=== PATIENT | male | born 1990 | race Caucasian/White ===

== ENCOUNTER 2019-09-22 13:50 | Emergency (ER) | payer BC ==
[~2019-09-22] VITALS: Ht 175.3 cm; Wt 104.5 kg
[2019-09-22 13:54] VITALS: Ht 175.3 cm; Wt 104.5 kg
[2019-09-22] MEDS ORDERED: CYMBALTA30 MG PO (13:55)
[2019-09-22 14:29] LABS: ANION GAP 15.8 mmol/L (8-16); CALCIUM 9.3 mg/dL (8.5-10.1); CARBON DIOXIDE 23.9 mmol/L (21.0-32.0); CREATININE - SERUM 1.5 mg/dL (0.6-1.3); POTASSIUM - SERUM 3.7 mmol/L (3.5-5.1)
[2019-09-22 14:35] LABS: ALBUMIN 4.5 g/dL (3.4-5.0); BILIRUBIN - TOTAL 0.85 mg/dL (0.2-1.3); PROTEIN - SERUM 8.4 g/dL (6.4-8.2)
[2019-09-22 14:36] LABS: GLUCOSE NEGATIVE (NEGATIVE); NITRITE NEGATIVE (NEGATIVE); SPECIFIC GRAVITY 1.005 (1.005-1.020)
[2019-09-22 14:36] LABS: BASOPHILS 0.1 % (0-2); EOSINOPHILS 0.1 % (0-7); HEMATOCRIT 47.8 % (42.0-54.0); HEMOGLOBIN 15.9 g/dL (13.5-17.5); IMMATURE GRANULOCYTES 0.3 % (0-5); LYMPHOCYTES 10.9 % (15-50); MCH 32.4 pg (26.0-34.0); MCHC 33.3 g/dL (31.0-37.0); MCV 97.6 fL (80.0-100.0); MEAN PLATELET VOLUME 11.3 fL (7.4-10.4); MONOCYTES 4.2 % (2-11); NEUTROPHILS 84.4 % (40-80); PLATELET COUNT 320 10x3/uL (130-400); RDW 12.9 % (11.5-14.5); WBC 14.5 10x3/uL (4.8-10.8)
[2019-09-22 14:37] LABS: BILIRUBIN NEGATIVE (NEGATIVE); KETONE LARGE mg/dL (NEGATIVE); UROBILINOGEN NORMAL (NORMAL)
[2019-09-22] MEDS ORDERED: PROTONIX40 MG PO (16:25)
[2019-09-22] MEDS ORDERED: ZOFRAN ODT4 MG/UDTAB PO (16:30)
[2019-09-22 17:11] VITALS: BP 107/62
== END 2019-09-22 17:11 | disposition home or self-care (01) ==
LOC: D.ER 13:50
PROVIDERS: Family Medicine
DX: K29.70 Gastritis, unspecified, without bleeding (principal); N17.9 Acute kidney failure, unspecified; E86.0 Dehydration; R10.13 Epigastric pain; R11.10 Vomiting, unspecified